=== PATIENT | female | born 1985 | race Hispanic/Latino ===

== ENCOUNTER 2021-03-25 11:34 | Emergency (ER) | payer OTHER ==
[~2021-03-25] VITALS: Ht 157.5 cm; Wt 58.1 kg
[2021-03-25] MEDS ORDERED: CYCLOBENZAPRINE10 MG PO (14:38)
== END 2021-03-25 15:09 | disposition home or self-care (01) ==
LOC: ED 11:34
DX: S16.1XXA Strain of muscle, fascia and tendon at neck level, initial encounter (principal); Y04.8XXA Assault by other bodily force, initial encounter
CPT/HCPCS: 70450; 72125; 84703; 99284-25